=== PATIENT | female | born 1975 | race African-American/Black ===

== ENCOUNTER 2019-05-17 19:34 | Emergency (ER) | payer MEDICARE ==
[~2019-05-17] VITALS: Ht 175.3 cm; Wt 96.0 kg
[2019-05-17 19:56] VITALS: BP 157/102
== END 2019-05-18 01:20 | disposition left against medical advice (07) ==
LOC: ER 19:59
DX: R07.89 Other chest pain (principal); Z53.21 Procedure and treatment not carried out due to patient leaving prior to being seen by health care provider
CPT/HCPCS: 81025